=== PATIENT | female | born 1975 | race Two or more races ===

== ENCOUNTER 2022-03-20 10:12 | Emergency (ER) | payer OTHER ==
[2022-03-20 11:48] LABS: SARS-CoV-2 NAA Rapid Test Not Detected (NotDetected)
== END 2022-03-20 12:35 | disposition home or self-care (01) ==
LOC: CSHERS 10:12
DX: J11.1 Influenza due to unidentified influenza virus with other respiratory manifestations (principal); J01.90 Acute sinusitis, unspecified; B96.89 Other specified bacterial agents as the cause of diseases classified elsewhere; I10 Essential (primary) hypertension; Z20.822 Contact with and (suspected) exposure to COVID-19
CPT/HCPCS: 99283

== ENCOUNTER 2023-06-27 17:57 | Emergency (ER) | payer OTHER ==
[2023-06-27 19:43] LABS: Influenza A by NAA Not Detected (NotDetected); Influenza B by NAA Not Detected (NotDetected); SARS-CoV-2 NAA Rapid Test DETECTED (NotDetected)
== END 2023-06-27 20:43 | disposition home or self-care (01) ==
LOC: CSHERS 17:57
DX: U07.1 COVID-19 (principal); I25.10 Atherosclerotic heart disease of native coronary artery without angina pectoris; I10 Essential (primary) hypertension; F17.210 Nicotine dependence, cigarettes, uncomplicated; Z86.73 Personal history of transient ischemic attack (TIA), and cerebral infarction without residual deficits
CPT/HCPCS: 99283